=== PATIENT | female | born 1945 | race Caucasian/White ===

== ENCOUNTER 2017-06-07 14:07 | Outpatient (CLI) | payer MEDICARE, OTHER ==
--- NOTE | 2017-06-07 15:48 | Ultrasound Report ---
THYROID ULTRASOUND: 06/07/2017 CLINICAL INDICATION: Followup goiter. COMPARISON: 06/01/2016. TECHNIQUE: Real-time scanning was performed with senior sales representative static images obtained. FINDINGS: The right lobe measures 5.0 x 2.2 x 1.8 cm, and the left lobe measures 4.8 x 2.2 X 1.8 cm. The isthmus measures 5 mm. The thyroid again demonstrates heterogeneous background echogenicity. Mul tiple cystic and spongiform nodules are seen bilaterally, measuring up to 1.6 cm in the right lobe, a nd 1.8 cm in the left lobe. These have not changed significantly. No new suspicious nodule is seen. IMPRESSION: STABLE MULTINODULAR THYROID. NO SIGNIFICANT INTERVAL CHANGE. JOB #: [id number] EXT JOB #:
== END 2017-06-07 14:08 | disposition home or self-care (01) ==
LOC: DI 14:07
PROVIDERS: ATTEND Internal Medicine
DX: E04.2 Nontoxic multinodular goiter (principal)
CPT/HCPCS: 76536

== ENCOUNTER 2017-10-23 08:00 | Outpatient (CLI) | payer MEDICARE, OTHER ==
[2017-10-23 18:05] LABS: CREATININE 0.5 mg/dL (0.4-1.0)
== END 2017-10-23 08:01 ==
LOC: LAB.F 08:00
PROVIDERS: ATTEND Internal Medicine
DX: E04.9 Nontoxic goiter, unspecified (principal); I10 Essential (primary) hypertension
CPT/HCPCS: 36415; 80048; 84443

== ENCOUNTER 2017-11-29 10:52 | Outpatient (CLI) | payer MEDICARE, OTHER ==
--- NOTE | 2017-11-29 15:22 | XRAY Report ---
THREE VIEW RIGHT KNEE: 11/29/2017 CLINICAL INDICATION: Pain. FINDINGS: AP, lateral, the [place] views of the right knee demonstrate moderate osteoarthritis. There is no evidence of acute fracture. No effusion is present. IMPRESSION: MODERATE OSTEOARTHRITIS. TD: 11/29/2017 11:29
== END 2017-11-29 10:53 | disposition home or self-care (01) ==
LOC: DI 10:52
PROVIDERS: ATTEND Internal Medicine
DX: M25.561 Pain in right knee (principal); M17.11 Unilateral primary osteoarthritis, right knee

== ENCOUNTER 2018-01-30 10:59 | Outpatient (CLI) | payer MEDICARE, OTHER ==
[2018-01-30 18:22] LABS: CALCIUM 9.4 mg/dL (8.5-10.3); CREATININE 0.6 mg/dL (0.4-1.0)
== END 2018-01-30 11:00 | disposition home or self-care (01) ==
LOC: LAB.F 10:59
PROVIDERS: ATTEND Internal Medicine
DX: I10 Essential (primary) hypertension (principal)
CPT/HCPCS: 36415; 80048

== ENCOUNTER 2018-08-14 14:03 | Outpatient (CLI) | payer MEDICARE, OTHER ==
[2018-08-14 18:44] LABS: CALCIUM 9.1 mg/dL (8.5-10.3); CREATININE 0.5 mg/dL (0.4-1.0)
== END 2018-08-14 14:04 | disposition home or self-care (01) ==
LOC: LAB.F 14:03
PROVIDERS: ATTEND Internal Medicine
DX: E04.9 Nontoxic goiter, unspecified (principal); I10 Essential (primary) hypertension; M54.30 Sciatica, unspecified side; C44.721 Squamous cell carcinoma of skin of unspecified lower limb, including hip; R33.9 Retention of urine, unspecified
CPT/HCPCS: 36415; 80048

== ENCOUNTER 2018-10-13 11:55 | Outpatient (CLI) | payer MEDICARE, OTHER ==
[2018-10-13 18:06] LABS: CALCIUM 9.5 mg/dL (8.5-10.3); CREATININE 0.6 mg/dL (0.4-1.0)
[2018-10-13 18:19] LABS: CHOL/HDL RATIO 2.3 (<4.4); CHOLESTEROL 181 mg/dL; HDL CHOLESTEROL 78 mg/dL; LDL CHOLESTEROL,CALCULATED 81 mg/dL; VLDL CHOLESTEROL 22 mg/dL
[2018-10-13 18:53] LABS: BILIRUBIN,URINE NEGATIVE (NEGATIVE); CLARITY,URINE CLEAR (CLEAR); GLUCOSE, URINE (UA) NEGATIVE (NEGATIVE); KETONES,URINE (UA) NEGATIVE (NEGATIVE); LEUKOCYTE ESTERASE, URINE NEGATIVE (NEGATIVE); NITRITE,URINE NEGATIVE (NEGATIVE); OCCULT BLOOD,URINE NEGATIVE (NEGATIVE); PH,URINE 5.5 PH (5.0-7.5); PROTEIN,URINE NEGATIVE (NEGATIVE); UROBILINOGEN,URINE 0.2 (NORMAL) E.U./dL (NORMAL)
[2018-10-13 19:00] LABS: HB2 TOTAL 15.6 g/dL; HEMOGLOBIN A1C 0.56 g/dL; HEMOGLOBIN A1C % 5.4 % (4.6-6.2)
[2018-10-13 19:17] LABS: BASOPHILS # (AUTO) 0.1 10^3/uL (0.0-0.1); EOSINOPHILS # (AUTO) 0.1 10^3/uL (0.0-0.7); HGB - HEMOGLOBIN 14.2 g/dL (12.0-16.0); LYMPHOCYTES # (AUTO) 2.3 10^3/uL (1.5-3.5); LYMPHOCYTES % (AUTO) 37.4 %; MEAN CORPUSCULAR HEMOGLOBIN 31.3 pg (27.0-31.0); MEAN CORPUSCULAR HGB CONC 33.3 g/dL (32.0-36.0); MEAN CORPUSCULAR VOLUME 93.9 fL (81.0-99.0); MONOCYTES # (AUTO) 0.6 10^3/uL (0.0-1.0); MONOCYTES % (AUTO) 9.3 %; NEUTROPHILS # (AUTO) 3.2 10^3/uL (1.5-6.6); NEUTROPHILS % (AUTO) 51.3 %; PLT - PLATELET COUNT 360 10^3/uL (130-450); RED BLOOD COUNT 4.55 10^6/uL (4.20-5.40); WHITE BLOOD COUNT 6.2 x10^3/uL (4.8-10.8)
[2018-10-14 11:51] LABS: HEPATITIS C ANTIBODY NON-REACTIVE (NON-REACTIVE)
== END 2018-10-13 11:56 | disposition home or self-care (01) ==
LOC: LAB.F 11:55
PROVIDERS: ATTEND Orthopaedic Surgery
DX: Z01.818 Encounter for other preprocedural examination (principal); Z11.59 Encounter for screening for other viral diseases; E04.9 Nontoxic goiter, unspecified; I10 Essential (primary) hypertension; M54.30 Sciatica, unspecified side; C44.721 Squamous cell carcinoma of skin of unspecified lower limb, including hip; R33.9 Retention of urine, unspecified; Z13.6 Encounter for screening for cardiovascular disorders; Z01.812 Encounter for preprocedural laboratory examination; N39.9 Disorder of urinary system, unspecified; Z13.1 Encounter for screening for diabetes mellitus; R73.9 Hyperglycemia, unspecified
CPT/HCPCS: 36415; 80048; 80061; 81001; 81003; 83036; 83721; 84443; 85025; 86803; 87086

== ENCOUNTER 2018-10-28 11:20 | Outpatient (CLI) | payer MEDICARE, OTHER | END 2018-10-28 11:21 | disposition home or self-care (01) | LOC: RT 11:20 | PROVIDERS: ATTEND Orthopaedic Surgery | DX: Z01.810 Encounter for preprocedural cardiovascular examination (principal); N39.9 Disorder of urinary system, unspecified; Z13.1 Encounter for screening for diabetes mellitus; R73.9 Hyperglycemia, unspecified | CPT/HCPCS: 93005 ==

== ENCOUNTER 2019-01-22 12:40 | Outpatient (CLI) | payer MEDICARE, OTHER ==
--- NOTE | 2019-01-26 08:39 | Mammography Report ---
Reason: SCREENING MAMMO Procedure Date: 01/22/2019 Accession Number: [id number] / [id number] Procedure: BROOKE - Screening Mammo w/Jaime CPT Code: FULL RESULT: EXAM: Screening Mammo w/Jaime DATE: 01/22/2019 1:00 PM CLINICAL HISTORY: Screening encounter. History of nulliparity. TECHNIQUE: (B) - Bilateral CC, laterally exaggerated CC, MLO views were obtained. COMPARISON: 06/01/2016 through 09/20/2010. PARENCHYMAL PATTERN: (D) - The breast(s) demonstrate(s) heterogeneously dense fibroglandular parenchyma. FINDINGS: In the upper outer left breast finding calcifications and potentially subtle slowly increasing soft tissue in the region of the axillary tail. This requires additional spot magnification views as well as potentially ultrasound for clarification. There are no suspicious masses, calcifications, or areas of distortion. IMPRESSION: Incomplete examination. BI-RADS category 0. RECOMMENDATION: (ADDMU) - Additional views using both Mammography and Ultrasound recommended. Upper outer left breast. BI-RADS CATEGORY: (0) - Incomplete Examination - need additional evaluation. STANDARD QUALIFYING STATEMENTS: 1. This examination was not reviewed with the aid of Computer-Aided Detection (CAD). 2. A negative or benign imaging report should not preclude biopsy if clinically suspicious findings are present. 3. Dense breasts may obscure an underlying neoplasm. 4. This examination was reviewed with the aid of 3D breast imaging (tomosynthesis).
== END 2019-01-22 12:41 | disposition home or self-care (01) ==
LOC: DI 12:40
PROVIDERS: ATTEND Internal Medicine
DX: Z12.31 Encounter for screening mammogram for malignant neoplasm of breast (principal)
CPT/HCPCS: 77063; 77067

== ENCOUNTER 2019-02-04 13:48 | Outpatient (CLI) | payer MEDICARE, OTHER ==
--- NOTE | 2019-02-04 17:06 | Mammography Report ---
Reason: ABNORMAL MAMMOGRAM Procedure Date: 02/04/2019 Accession Number: [id number] / [id number] Procedure: BROOKE - Diag Special Views Dig LT CPT Code: FULL RESULT: EXAM: Diag Special Views Dig LT DATE: 02/04/2019 3:09 PM CLINICAL HISTORY: Diagnostic examination. The patient is called back from screening for left upper outer breast calcifications. TECHNIQUE: (L) - Left left spot magnified CC, spot magnified MLO and left ML images are obtained. COMPARISON: 01/22/2019 09/20/2010. PARENCHYMAL PATTERN: (D) - The breast(s) demonstrate(s) heterogeneously dense fibroglandular parenchyma. FINDINGS: Spot magnification views confirm the indeterminate calcifications without a definite associated architectural distortion, definite pleomorphism or mass, probably benign. There are no suspicious masses, calcifications, or areas of distortion. IMPRESSION: Probably Benign. BI-RADS category 3. RECOMMENDATION: (BIOPSY) - in discussion with the patient, the patient tentatively elected stereotactic left breast biopsy rather than six-month follow-up imaging to obtain a definitive answer. BI-RADS CATEGORY: (3) - Probably Benign. STANDARD QUALIFYING STATEMENTS: 1. This examination was not reviewed with the aid of Computer-Aided Detection (CAD). 2. A negative or benign imaging report should not preclude biopsy if clinically suspicious findings are present. 3. Dense breasts may obscure an underlying neoplasm. 4. This examination was reviewed with the aid of 3D breast imaging (tomosynthesis).
== END 2019-02-04 13:49 | disposition home or self-care (01) ==
LOC: DI 13:48
PROVIDERS: ATTEND Internal Medicine
DX: R92.2 Inconclusive mammogram (principal)
CPT/HCPCS: 77065; G0279

== ENCOUNTER 2019-04-29 09:37 | Outpatient (CLI) | payer MEDICARE, OTHER ==
[~2019-04-29 09:37] MED LIST: BUFFERED LIDOCAINE 10 ML SYRINGE ONE; BUPIVACAINE 0.5%-EPI 1:200000 PF 10 ML VIAL ONE
[2019-04-29] MEDS ORDERED: BUFFERED LIDOCAINE 10 ML SYRINGE IU ONE (11:45)
--- NOTE | 2019-04-29 13:21 | Mammography Report ---
Reason: ABNORMAL MAMMOGRAM Procedure Date: 04/29/2019 Accession Number: [id number] / [id number] Procedure: BROOKE - Stereotactic Core BX LT CPT Code: 27887 FULL RESULT: EXAM: Stereotactic Core BX LT DATE: 04/29/2019 11:17 AM CLINICAL HISTORY: ABNORMAL MAMMOGRAM COMPARISON: None. CLINICAL DATA: Target calcifications measuring approximately 3 cm in the 3 o'clock axis of the left breast. Informed consent was obtained. The patient was positioned in the mammography machine with biopsy attachment. Targeting imaging was obtained and the lesion was selected. The breast was approached from the cranial aspect. Using standard aseptic technique, 1% buffered lidocaine was injected into the breasts for local anesthesia. A small kayla was made in the skin with a #11 blade. A 9-gauge vacuum-assisted device was advanced into the breasts towards the target and confirmatory imaging was obtained to verify targeting and 12 specimens were obtained. Specimen radiography was performed which demonstrated the presence of calcifications in the sample. A biopsy marker clip was then placed into the biopsy cavity. The biopsy device was subsequently removed from the breast. Hemostasis was achieved. Follow-up mammography was then performed to verify biopsy targeting and clip placement. The mammography showed concordant clip placement and biopsy changes . The wound was dressed and ice applied. The patient was observed for approximately 15 minutes, then discharged from the diagnostic imaging Department in stable condition following instructions on wound care and obtaining biopsy results. The patient is scheduled to receive her biopsy results from the referring physician . The tissue was sent for histologic analysis. IMPRESSION: Stereotactic biopsy of left breast calcifications. RADIA
== END 2019-04-29 09:38 | disposition home or self-care (01) ==
LOC: DI 09:37
PROVIDERS: ATTEND Internal Medicine
DX: R92.0 Mammographic microcalcification found on diagnostic imaging of breast (principal)
CPT/HCPCS: 19081

== ENCOUNTER 2019-06-03 08:21 | Outpatient (CLI) | payer MEDICARE, OTHER ==
--- NOTE | 2019-06-03 16:49 | XRAY Report ---
Reason: SCIATICA Procedure Date: 06/03/2019 Accession Number: [id number] / [id number] Procedure: XR - Lumbar Spine 2 View CPT Code: Final Report FULL RESULT: EXAM: LUMBOSACRAL SPINE RADIOGRAPHY EXAM DATE: 06/03/2019 09:35 AM. CLINICAL HISTORY: Sciatica. COMPARISONS: None. TECHNIQUE: 2 views. FINDINGS: Alignment: There is mild dextroconvex 4.5 degrees scoliosis centered about L3. Posterior L4-L5 fusion hardware is noted in expected configuration. No abnormal listhesis. Bones: Five [id number] lumbar vertebral bodies are present.The bones are qualitatively osteopenic; this limits evaluation for underlying fractures or masses. Within the limits of pronounced qualitative osteopenia, no fracture is detected. Disks: Disk space heights at nonfused levels are preserved. Facets: Facet arthropathy is seen at the levels mostly surrounding the fused level. Sacroiliac Joints: Unremarkable. Soft Tissues: Normal. The visualized bowel gas pattern is normal. IMPRESSION: Qualitative osteopenia. Prior posterior L4-L5 fusion with expected appearance. RADIA
--- NOTE | 2019-06-03 17:03 | Ultrasound Report ---
Reason: GOITER Procedure Date: 06/03/2019 Accession Number: [id number] / [id number] Procedure: US - Head or Neck Soft Tissue CPT Code: Final Report FULL RESULT: EXAM: THYROID ULTRASOUND EXAM DATE: 06/03/2019 09:41 AM. CLINICAL HISTORY: GOITER. COMPARISON: HEAD OR NECK SOFT TISSUE 06/07/2017 2:48 PM. TECHNIQUE: Real time sonographic imaging of the thyroid was performed by the affiliate marketing manager. Multiple commissary representative static images were saved for review. FINDINGS: THYROID GLAND: Right Lobe: 5.2 x 2.5 x 1.7 cm, volume 11.6 cc. Normal background echotexture. Right Lobe Nodules: Inferior pole 1.8 x 1.4 x 1.4 cm heterogeneous nodule, potentially partially cystic with internal vascularity. Upper pole hypoechoic solid-appearing 0.8 x 0.4 x 0.7 cm nodule. Left Lobe: 5.3 x 2.1 x 1.8 cm, volume 10.5 cc. Normal background echotexture. Left Lobe Nodules: 1.8 x 1.1 x 1.2 cm superior pole hypoechoic partially cystic heterogeneous nodule with internal vascularity which is confluent with a second 0.8 x 0.7 x 1.1 cm hypoechoic potentially partially cystic nodule. Inferior pole contains 2 subcentimeter nodules which are hypoechoic and measure up to 0.7 cm each. Isthmus: 0.4 cm AP. Isthmic Nodules: None. LYMPH NODES: No adenopathy demonstrated in the central or lateral compartment. OTHER: None. IMPRESSION: Multinodular thyroid with redemonstration of thyroid nodules. While in number and configuration of thyroid nodules is overall similar to prior, the left upper pole nodule demonstrates questionable interval increase of solid component and the dominant right thyroid nodule appears to have increased in size. Both nodules are formally very low suspicion with recommendation for follow-up versus tissue sampling. Management recommendations are based on 2015 [place] [employer] Management Guidelines for Adult Patients with Thyroid Nodules and Differentiated Thyroid Cancer. RADIA
== END 2019-06-03 08:22 | disposition home or self-care (01) ==
LOC: DI 08:21
PROVIDERS: ATTEND Internal Medicine
DX: E04.2 Nontoxic multinodular goiter (principal); M47.816 Spondylosis without myelopathy or radiculopathy, lumbar region; M85.88 Other specified disorders of bone density and structure, other site; Z98.1 Arthrodesis status; M25.561 Pain in right knee; Z96.651 Presence of right artificial knee joint; M25.461 Effusion, right knee
CPT/HCPCS: 72100; 76536

== ENCOUNTER 2019-06-03 09:47 | Outpatient (CLI) | payer MEDICARE, OTHER ==
--- NOTE | 2019-06-03 15:10 | CT Report ---
Reason: RT KNEE PAIN Procedure Date: 06/03/2019 Accession Number: [id number] / [id number] Procedure: CT - LOWER EXTREMITY WO - RT CPT Code: Final Report FULL RESULT: EXAM: RIGHT KNEE CT WITHOUT CONTRAST EXAM DATE: 06/03/2019 08:47 AM. CLINICAL HISTORY: Right knee pain. Status post total knee replacement. Concern for rotation of knee prosthesis components. COMPARISON: KNEE 3 VIEW RT 11/29/2017 10:57 AM. TECHNIQUE: Thin-section axial images were acquired of the knee without contrast. Post-processing: Coronal and sagittal reformats. Other: None. In accordance with CT protocol optimization, one or more of the following dose reduction techniques were utilized for this exam: automated exposure control, adjustment of mA and/or KV based on patient size, or use of iterative reconstructive technique. FINDINGS: Bones: Mild bony resorption is seen at the lateral tibial plateau prosthesis cement bony interface (sees image 65 series 7). Negative for significant bony resorption tibial plateau prosthesis post. Negative for bony resorption or migration femoral condyle prosthesis. Anatomic position patella prosthesis. Joints: Moderate suprapatellar recess joint fluid. Musculature: Normal. No fatty atrophy. Other: No Bakers cyst. No soft tissue swelling. IMPRESSION: 1. Negative for total hip arthroplasty prosthesis migration. 2. Mild bony resorption lateral tibial plateau cement bony interface. 3. Moderate quantity of fluid suprapatellar recess. RADIA
== END 2019-06-03 09:48 | disposition home or self-care (01) ==
LOC: DI 09:47
PROVIDERS: ATTEND Orthopaedic Surgery
DX: M25.561 Pain in right knee (principal); Z96.651 Presence of right artificial knee joint; M25.461 Effusion, right knee

== ENCOUNTER 2019-07-31 13:51 | Outpatient (CLI) | payer MEDICARE, OTHER ==
[2019-07-31 17:50] LABS: CALCIUM 9.5 mg/dL (8.5-10.3); CREATININE 0.6 mg/dL (0.4-1.0)
== END 2019-07-31 13:52 | disposition home or self-care (01) ==
LOC: LAB.S 13:51
PROVIDERS: ATTEND Internal Medicine
DX: E04.9 Nontoxic goiter, unspecified (principal); I10 Essential (primary) hypertension; M54.30 Sciatica, unspecified side; C44.721 Squamous cell carcinoma of skin of unspecified lower limb, including hip
CPT/HCPCS: 36415; 80048

== ENCOUNTER 2019-10-21 12:00 | Outpatient (CLI) | payer MEDICARE, OTHER ==
--- NOTE | 2019-10-21 15:46 | Ultrasound Report ---
Reason: GOITER UNSPECIFIED Procedure Date: 10/21/2019 Accession Number: [id number] / [id number] Procedure: US - Head or Neck Soft Tissue CPT Code: Final Report FULL RESULT: EXAM: THYROID ULTRASOUND EXAM DATE: 10/21/2019 12:46 PM. CLINICAL HISTORY: Goiter unspecified. COMPARISON: HEAD OR NECK SOFT TISSUE 06/03/2019 9:01 AM. TECHNIQUE: Real time sonographic imaging of the thyroid was performed by the air breaker operator. Multiple event sales representative static images were saved for review. FINDINGS: THYROID GLAND: Right Lobe: 5.3 x 2.4 x 2.2 cm, volume 14.6 cc. Right Lobe Nodules: Upper pole nodule 0.4 x 0.9 x 0.9 cm, previously 0.4 x 0.7 x 0.8 cm. Mixed cystic and solid and low suspicion. Lower pole nodule 1.2 x 1.2 x 1.8 cm, previously 1.4 x 1.4 x 1.8 cm. Mixed cystic and solid and low suspicion Mid pole nodule 1.1 x 1.1 x 1.3 cm, extremely subtle in appearance. Not previously measured with this area of the right thyroid lobe appearing stable. Mixed cystic and solid low suspicion. Left Lobe: 6.3 x 2.1 x 2.1 cm, volume 14.5 cc. Left Lobe Nodules: Upper pole nodule 1.0 x 1.0 x 1.7 cm, previously 1.1 x 1.2 x 1.8 cm, mixed cystic and solid and low suspicion. Mid pole nodule 1.1 x 0.7 x 0.9 cm, previously 1.1 x 0.8 x 0.7 cm, mixed cystic and solid and low suspicion. Lower pole adjacent subcentimeter nodules, stable. Isthmus: 25 cm AP. Normal background echotexture. Isthmic Nodules: None. LYMPH NODES: No adenopathy demonstrated in the central or lateral compartment. OTHER: Numerous bilateral background tiny hypoechoic nodules appear stable. IMPRESSION: Overall stable appearance of multinodular thyroid. Management recommendations are based on 2015 [place] [employer] Management Guidelines for Adult Patients with Thyroid Nodules and Differentiated Thyroid Cancer. RADIA
--- NOTE | 2019-10-22 01:42 | XRAY Report ---
Reason: PAIN LEFT HIP Procedure Date: 10/21/2019 Accession Number: [id number] / [id number] Procedure: XR - Hip w/Pelvis 2-3V LT CPT Code: Final Report FULL RESULT: EXAM: LEFT HIP RADIOGRAPHY EXAM DATE: 10/21/2019 12:51 PM. CLINICAL HISTORY: PAIN LEFT HIP. COMPARISON: 04/24/2012 10:55 AM. TECHNIQUE: 2 views. FINDINGS: Bones: Normal. No fractures or bone lesion. Joints: Normal. No dislocation. The hip joint space is preserved. Soft Tissues: Normal. No soft tissue swelling. Multiple small calcifications are seen within the midline of the pelvis. IMPRESSION: Normal hip radiography. RADIA
== END 2019-10-21 12:01 | disposition home or self-care (01) ==
LOC: DI 12:00
PROVIDERS: ATTEND Internal Medicine
DX: E04.2 Nontoxic multinodular goiter (principal); M25.552 Pain in left hip
CPT/HCPCS: 76536

== ENCOUNTER 2020-01-11 14:28 | Outpatient (CLI) | payer MEDICARE, OTHER ==
[2020-01-11 21:32] LABS: BUN - BLOOD UREA NITROGEN 19 mg/dL (6-20); CALCIUM 9.3 mg/dL (8.5-10.3); CARBON DIOXIDE - CO2 21 mmol/L (21-32); CHLORIDE 101 mmol/L (101-111); CHOL/HDL RATIO 2.6 (<4.4); CHOLESTEROL 169 mg/dL; CREATININE 0.6 mg/dL (0.4-1.0); GLUCOSE 90 mg/dL (70-100); HDL CHOLESTEROL 65 mg/dL; LDL CHOLESTEROL,CALCULATED 87 mg/dL; LDL/HDL RATIO 1.3 (<4.4); SODIUM 135 mmol/L (135-145); VLDL CHOLESTEROL 17 mg/dL
== END 2020-01-11 14:29 | disposition home or self-care (01) ==
LOC: LAB.S 14:28
PROVIDERS: ATTEND Internal Medicine
DX: Z00.00 Encounter for general adult medical examination without abnormal findings (principal); E04.9 Nontoxic goiter, unspecified; M25.552 Pain in left hip; I10 Essential (primary) hypertension; M25.561 Pain in right knee; M54.30 Sciatica, unspecified side; C44.721 Squamous cell carcinoma of skin of unspecified lower limb, including hip; Z13.6 Encounter for screening for cardiovascular disorders
CPT/HCPCS: 36415; 80048; 80053; 80061; 83721; 84443

== ENCOUNTER 2020-11-05 10:53 | Outpatient (CLI) | payer MEDICARE, OTHER ==
[2020-11-05 16:01] LABS: CALCIUM 9.5 mg/dL (8.5-10.3); CREATININE 0.5 mg/dL (0.4-1.0)
[2020-11-05 16:17] LABS: THYROID STIMULATING HORMONE 0.81 uIU/mL (0.34-5.60)
== END 2020-11-05 10:54 | disposition home or self-care (01) ==
LOC: LAB.S 10:53
PROVIDERS: ATTEND Internal Medicine
DX: E04.9 Nontoxic goiter, unspecified (principal); M25.552 Pain in left hip; I10 Essential (primary) hypertension; M54.30 Sciatica, unspecified side; M48.062 Spinal stenosis, lumbar region with neurogenic claudication
CPT/HCPCS: 36415; 80048; 84443

== ENCOUNTER 2021-08-09 08:00 | Outpatient (CLI) | payer MEDICARE, OTHER ==
[2021-08-09 20:29] LABS: CALCIUM 9.2 mg/dL (8.5-10.3); CREATININE 0.7 mg/dL (0.4-1.0); POTASSIUM 4.1 mmol/L (3.5-5.0)
[2021-08-09 20:37] LABS: THYROID STIMULATING HORMONE 0.48 uIU/mL (0.34-5.60)
[2021-08-09 20:43] LABS: FERRITIN 55.9 ng/mL (11.0-306.8)
== END 2021-08-09 23:59 | disposition home or self-care (01) ==
LOC: LAB.S 08:00
PROVIDERS: ATTEND Internal Medicine
DX: L65.9 Nonscarring hair loss, unspecified (principal); E04.9 Nontoxic goiter, unspecified; I10 Essential (primary) hypertension
CPT/HCPCS: 36415; 80048; 82728; 83540; 84443; 84466

== ENCOUNTER 2022-01-22 10:42 | Outpatient (CLI) | payer MEDICARE, OTHER ==
--- NOTE | 2022-01-22 18:38 | DEXA Report ---
PROCEDURE: Dexa Spine and/or Hip INDICATIONS: POST MENOPAUSAL TECHNIQUE: Dual energy x-ray absorptiometry (DXA) was performed on a [employer] Software System. Regions measur ed are the AP Spine, femoral neck, and if needed forearm. COMPARISON: 06/01/2016 FINDINGS: Lumbar Spine: Bone Mineral Density 0.965 g/cm/cm,T score -1.7, osteopenia Left Hip: Bone Mineral Density 0.749 g/cm/cm,T score -2.1, osteopenia Left Femoral Neck: Bone Mineral Density 0.806 g/cm/cm, T score -1.7, osteopenia (T score greater or equal to -1.0: NORMAL) (T score from -1.1 to -2.4: OSTEOPENIA) (T score less than or equal to -2.5 to: OSTEOPOROSIS) Impression: Osteopenia. Patient is at increased risk for fracture. Of note, compared to 2016, patient's bone mineral density of the lumbar spine has decreased by 7.5%. Additionally, bone mineral density of the hip has decreased approximately 11.7%. Patients with diagnosis of osteoporosis or osteopenia should have regular bone mineral density assess ment. For those eligible for Medicare, routine testing is allowed once every 2 years. Testing frequ ency can be increased for patients who have rapidly progressing disease or for those who are receivin g medical therapy to restore bone mass. Reviewed by: Nj España MD on 01/22/2022 6:37 PM PDT Approved by: Nj España MD on 01/22/2022 6:37 PM PDT Station ID: [id number]
== END 2022-01-22 10:43 | disposition home or self-care (01) ==
LOC: DI 10:42
PROVIDERS: ATTEND Internal Medicine
DX: M85.89 Other specified disorders of bone density and structure, multiple sites (principal); Z78.0 Asymptomatic menopausal state

== ENCOUNTER 2022-02-07 12:51 | Outpatient (CLI) | payer MEDICARE, OTHER ==
--- NOTE | 2022-02-08 09:36 | Mammography Report ---
BILATERAL DIGITAL SCREENING MAMMOGRAM 3D/2D: 02/07/2022 CLINICAL: Routine screening. Comparison is made to exams dated: 04/29/2019 mammogram, 02/04/2019 mammogram, 01/22/2019 mammogram, a nd 06/01/2016 mammogram - [facility]. The tissue of both breasts is extremely dens e, which lowers the sensitivity of mammography. There is a biopsy clip in the left breast. No significant masses, calcifications, or other findings are seen in either breast. There has been no significant interval change. IMPRESSION: NEGATIVE There is no mammographic evidence of malignancy. A 1 year screening mammogram is recommended. Based on the Tyrer Cuzick model (a risk assessment model) the patients lifetime risk is 7.5% and her 10 year risk is 0.0%. According to the ACR, ACS, and NCCN guidelines, an annual breast MRI exam homar g with mammogram is recommended if the patients lifetime risk is 20% or greater. This exam was interpreted at Station ID: [id number]. NOTE: For mammograms, a report in lay terms will be sent to the patient. Approximately 15% of breast malignancies will not be visualized mammographically. In the management of a palpable breast mass, a negative mammogram must not discourage biopsy of a clinically suspicious lesion. Electronically Signed By: Asa Hauser M.D. [facility]/[place]:02/07/2022 17:15:00 ACR BI-RADS Category 1: Negative 3341F PARENCHYMAL PATTERN: (VD) - The breast(s) demonstrate(s) extremely dense parenchyma, limiting the sen sitivity of mammography. BI-RADS CATEGORY: (1) - 1 RECOMMENDATION: (ANNUAL) - Recommend routine annual screening mammography. [id number] 1 year screening LATERALITY: (B)
== END 2022-02-07 12:52 | disposition home or self-care (01) ==
LOC: DI.S 12:51
PROVIDERS: ATTEND Internal Medicine
DX: Z12.31 Encounter for screening mammogram for malignant neoplasm of breast (principal)

== ENCOUNTER 2023-02-21 10:15 | Outpatient (CLI) | payer MEDICARE, OTHER ==
--- NOTE | 2023-02-22 09:19 | Mammography Report ---
BILATERAL DIGITAL SCREENING MAMMOGRAM 3D/2D: 02/21/2023 CLINICAL: Routine screening. Comparison is made to exams dated: 02/07/2022 mammogram, 04/29/2019 mammogram, 02/04/2019 mammogram, a nd 01/22/2019 mammogram - [facility]. Both breasts are extremely dense, which lowers the sensitivity of mammography (category d />75% gland ular tissue). There are benign calcifications in both breasts. There also is a biopsy clip in the left breast. No significant masses, calcifications, or other findings are seen in either breast. There has been no significant interval change. IMPRESSION: BENIGN There is no mammographic evidence of malignancy. A 1 year screening mammogram is recommended. Based on the Tyrer Cuzick model (a risk assessment model) the patients lifetime risk is 6.8% and her 10 year risk is 0.0%. According to the ACR, ACS, and NCCN guidelines, an annual breast MRI exam homar g with mammogram is recommended if the patients lifetime risk is 20% or greater. This exam was interpreted at Station ID: [id number]. NOTE: For mammograms, a report in lay terms will be sent to the patient. Approximately 15% of breast malignancies will not be visualized mammographically. In the management of a palpable breast mass, a negative mammogram must not discourage biopsy of a clinically suspicious lesion. Electronically Signed By: Asa vickers/ishan:02/21/2023 13:06:21 letter sent: No_Letter ACR BI-RADS Category 2: Benign Finding(s) 3342F PARENCHYMAL PATTERN: (VD) - The breast(s) demonstrate(s) extremely dense parenchyma, limiting the sen sitivity of mammography. BI-RADS CATEGORY: (2) - 2 Mammogram [id number] 1 year screening LATERALITY: (B)
== END 2023-02-21 10:16 | disposition home or self-care (01) ==
LOC: DI 10:15
PROVIDERS: ATTEND Internal Medicine
DX: Z12.31 Encounter for screening mammogram for malignant neoplasm of breast (principal)

== ENCOUNTER 2023-02-21 10:16 | Outpatient (CLI) | payer MEDICARE, OTHER ==
--- NOTE | 2023-02-21 20:17 | Ultrasound Report ---
PROCEDURE: Head or Neck Soft Tissue INDICATIONS: GOITER TECHNIQUE: Real-time scanning was performed of the thyroid gland, with image documentation. COMPARISON: None FINDINGS: Right: Thyroid lobe measures 4.7 x 2.3 x 1.7 cm, and is homogeneous in echotexture. Left: Thyroid lobe measures 4.6 x 1.8 x 1.8 cm, and is homogenous in echotexture. Isthmus: 4 mm thick. Nodule number: One Location: Right Size: 0.9 x 0.5 x 0.8 cm. Composition: Solid. Echogenicity: Portable]. Shape: wider than tall. Margins: Smooth. Echogenic foci: None. Total points: 4 ACR TI-RADS category: 4. Nodule number: Two Location: Right Size: 0.6 x 0.4 x 0.5 cm. Composition: Spongiform. Echogenicity: Hypoechoic. Shape: wider than tall. Margins: Smooth (0 points). Echogenic foci: None (0 points). Total points: 2 ACR TI-RADS category: Not suspicious (2 points). Nodule number: Three Location: Right Size: 1.5 x 1.0 x 1.3 cm. Composition: Spongiform. Echogenicity: Hypoechoic. Shape: wider than tall. Margins: Lobulated / Irregular (2 points). Echogenic foci: Macrocalcification (1 point). Total points: 5 ACR TI-RADS category: Moderately suspicious (4-6 points). Nodule number: Four Location: Left Size: 1.7 x 1.3 x 1.0 cm. Composition: Predominantly solid. Echogenicity: Hypoechoic. Shape: wider than tall. Margins: Smooth (0 points). Echogenic foci: Peripheral (rim) calcification (2 points). Total points: 6 ACR TI-RADS category: 4. IMPRESSION: Relatively stable thyroid nodules. Continue best practice follow-up schedule as below ACR TI-RADS definitions and recommendations: TI-RADS 1 (benign): 0 points. FNA not needed. TI-RADS 2 (not suspicious): 2 points. FNA not needed. TI-RADS 3 (mildly suspicious): 3 points. "FNA if 2.5 cm or larger, follow up if 1.5 cm or larger (at 1, 3, and 5 years). TI-RADS 4 (moderately suspicious): 4-6 points. "FNA if 1.5 cm or larger, follow up if 1 cm or larger (at 1, 2, 3, and 5 years). TI-RADS 5 (highly suspicious): 7 points or more. "FNA if 1 cm or larger, follow up if 0.5 cm or larger (every year for 5 years). Reviewed by: Gus Shannon MD on 02/21/2023 7:16 PM AKDT Approved by: Gus Shannon MD on 02/21/2023 7:16 PM AKDT Station ID: [id number]
== END 2023-02-21 10:17 | disposition home or self-care (01) ==
LOC: DI 10:16
PROVIDERS: ATTEND Internal Medicine
DX: E04.2 Nontoxic multinodular goiter (principal)

== ENCOUNTER 2023-03-08 11:22 | Outpatient (CLI) | payer MEDICARE, OTHER ==
[2023-03-08 15:22] LABS: CALCIUM 9.6 mg/dL (8.5-10.3); CREATININE 0.6 mg/dL (0.6-1.3); POTASSIUM 4.3 mmol/L (3.5-4.5)
[2023-03-08 15:39] LABS: THYROID STIMULATING HORMONE 0.54 uIU/mL (0.34-5.60)
== END 2023-03-08 11:23 | disposition home or self-care (01) ==
LOC: LAB.S 11:22
PROVIDERS: ATTEND Internal Medicine
DX: I10 Essential (primary) hypertension (principal); E04.9 Nontoxic goiter, unspecified
CPT/HCPCS: 36415; 80048; 84439; 84443; 84481

== ENCOUNTER 2023-10-30 13:24 | Outpatient (CLI) | payer MEDICARE, OTHER ==
[2023-10-30 19:53] LABS: CALCIUM 10.1 mg/dL (8.5-10.3); CREATININE 0.6 mg/dL (0.6-1.3); POTASSIUM 4.1 mmol/L (3.5-4.5)
== END 2023-10-30 13:25 | disposition home or self-care (01) ==
LOC: LAB.S 13:24
PROVIDERS: ATTEND Internal Medicine
DX: E87.1 Hypo-osmolality and hyponatremia (principal)
CPT/HCPCS: 36415; 80048